=== PATIENT | male | born 2000 | race Caucasian/White ===

== ENCOUNTER 2022-12-15 20:38 | Emergency (ER) | payer OTHER ==
[~2022-12-15] VITALS: Ht 180.3 cm; Wt 68.0 kg
[2022-12-15] MEDS ORDERED: KETOROLAC 30 MG/ML 1ML VIAL IV ONE (22:40)
[2022-12-15 23:12] LABS: CK-MB VALUE MASS < 1.0 NG/ML (<3.6)
[2022-12-15 23:15] LABS: BASO % 0.4 % (0.0-1.0); EOS % 0.4 % (0.0-3.0); HEMOGLOBIN 14.4 g/dl (13.5-17.5); LYMPH # 1.8 10^3/uL (1.5-5.0); LYMPH % 22.6 % (24.0-44.0); MEAN CORPUSCULAR HEMOGLOBIN 31.5 pg (27.0-33.0); MEAN CORPUSCULAR HGB CONC 33.5 g/dl (32.0-36.5); MEAN CORPUSCULAR VOLUME 94.1 fl (80.0-96.0); MONO # 0.5 10^3/uL (0.0-0.8); MONO % 5.7 % (2.0-8.0); NEUTROPHILS # 5.6 10^3/uL (1.5-8.5); NEUTROPHILS % 70.6 % (36.0-66.0); PLATELET COUNT, AUTOMATED 241 10^3/uL (150-450); RED BLOOD COUNT 4.57 10^6/uL (4.30-6.10); WHITE BLOOD COUNT 7.9 10^3/uL (4.0-10.0)
[2022-12-15 23:16] LABS: T UPTAKE 42.9 % (22.5-37.0); THYROID STIMULATING HORMONE 1.765 uIU/ML (0.55-4.78)
[2022-12-15 23:25] LABS: CPK CREATINE PHOSPHOKINASE 196 U/L (46-171); MB/CK RELATIVE INDEX 0.51 (< OR =4)
[2022-12-15 23:32] LABS: FREE THYROXINE INDEX 2.4 % (1.4-3.8); THYROXINE (T4) 5.6 UG/DL (4.5-10.9)
[2022-12-16] MEDS ORDERED: NAPR-837 PO (00:18)
[2022-12-16 00:22] VITALS: BP 120/65
== END 2022-12-16 00:27 | disposition home or self-care (01) ==
LOC: M ED 20:38
DX: R07.9 Chest pain, unspecified (principal); R42 Dizziness and giddiness; R74.8 Abnormal levels of other serum enzymes; Z88.6 Allergy status to analgesic agent
CPT/HCPCS: 71046; 80047; 82550; 82553; 84436; 84443; 84479; 84484; 85025; 93005; 96374; 99284; J1885